=== PATIENT | female | born 1965 | race African-American/Black ===

== ENCOUNTER 2018-01-05 14:59 | Emergency (ER) | payer BC, MEDICARE, OTHER ==
[2018-01-05] MEDS ORDERED: Ibuprofen 200 MG TAB ONE (15:20)
== END 2018-01-05 16:03 | disposition home or self-care (01) ==
LOC: ERS 14:59
DX: J06.9 Acute upper respiratory infection, unspecified (principal); Z79.891 Long term (current) use of opiate analgesic; Z79.899 Other long term (current) drug therapy
CPT/HCPCS: 87081; 87430; 87804; 99283

== ENCOUNTER 2018-09-23 09:33 | Outpatient (CLI) | payer BC | END 2018-09-23 09:34 | disposition home or self-care (01) | LOC: BICMAMMO 09:33 | PROVIDERS: ATTEND Family Medicine | DX: Z12.31 Encounter for screening mammogram for malignant neoplasm of breast (principal) | CPT/HCPCS: 77063; 77067 ==

== ENCOUNTER 2022-05-03 10:02 | Outpatient (CLI) | payer OTHER | END 2022-05-03 10:03 | disposition home or self-care (01) | LOC: BICRAD 10:02 | PROVIDERS: ATTEND Internal Medicine | DX: Z02.71 Encounter for disability determination (principal); M47.816 Spondylosis without myelopathy or radiculopathy, lumbar region; M47.817 Spondylosis without myelopathy or radiculopathy, lumbosacral region; M47.898 Other spondylosis, sacral and sacrococcygeal region; Z96.651 Presence of right artificial knee joint | CPT/HCPCS: 72100 ==